=== PATIENT | female | born 2000 | race Asian ===

== ENCOUNTER 2023-04-10 15:21 | Emergency (ER) | payer OTHER ==
[~2023-04-10] VITALS: Ht 160 cm; Wt 61.0 kg
[2023-04-10 15:24] VITALS: O2SAT 95
[2023-04-10] MEDS ORDERED: METHYLPREDNISOLONE SOD SUCC 40MG VIAL IV ONE (16:00)
[2023-04-10] MEDS ORDERED: DIPHENHYDRAMINE 50MG/ML VIAL IV ONE (16:00)
[2023-04-10] MEDS ORDERED: METHYLPREDNISOLONE SOD SUCC 125MG VIAL IV NR (16:15)
[2023-04-10] MEDS ORDERED: EPIN0.3P3 IM (20:40)
[2023-04-10 20:45] VITALS: BP 129/69; PULSE 88; RESP 12; TEMP 98.4
== END 2023-04-10 20:45 | disposition home or self-care (01) ==
LOC: ER 15:21
DX: T78.1XXA Other adverse food reactions, not elsewhere classified, initial encounter (principal); X58.XXXA Exposure to other specified factors, initial encounter
CPT/HCPCS: 96374; 96375; 99284; J1200; J2930; Z7610 ×3; J2920